=== PATIENT | female | born 1955 | race Hispanic/Latino ===

== ENCOUNTER → 2019-11-25 | Outpatient (CLI) | payer OTHER ==
[~2019-11-25] MED LIST: AEC81 PO; ENAL10TA18 PO; HYDR-3422 PO; IBUP-2784 PO; RISP2TAB22 PO; TRAZ300T2 PO
== END | disposition home or self-care (01) ==
LOC: RAH 15:01
PROVIDERS: ATTEND Internal Medicine Cardiovascular Disease
DX: Z13.6 Encounter for screening for cardiovascular disorders (principal)
CPT/HCPCS: 75571

== ENCOUNTER 2020-03-30 16:52 | Inpatient (IN) | payer OTHER ==
[~2020-03-30] VITALS: Ht 160 cm; Wt 80.8 kg
[~2020-03-30 16:52] MED LIST changes: -RISP2TAB22 PO; +RISP2TAB86 PO
[2020-03-30 17:44] LABS: BASOPHILS % (AUTO) 2.9 % (0.0-5.0); EOSINOPHILS % (AUTO) 1.2 % (0.0-8.0); LYMPHOCYTES % (AUTO) 22.4 % (21.0-51.0); MEAN CORPUSCULAR HEMOGLOBIN 29.3 pg (27.0-33.0); MEAN CORPUSCULAR VOLUME 88.8 fL (79-99); NEUTROPHILS % (AUTO) 64.2 % (40.0-77.0); PLATELET COUNT (AUTO) 292 K/uL (130-400); RED BLOOD CELL COUNT(AUTO) 4.84 MIL/uL (4.00-5.50); WHITE BLOOD COUNT (AUTO) 10.6 K/uL (4.8-10.8)
[2020-03-30 17:45] LABS: APPEARANCE,URINE CLOUDY (CLEAR); BILIRUBIN,URINE LARGE (NEGATIVE); COLOR,URINE ORANGE (YELLOW); GLUCOSE, URINE (UA) 100 mg/dL (NEGATIVE); KETONES,URINE 15 mg/dL (NEGATIVE); LEUKOCYTE ESTERASE ,URINE SMALL (NEGATIVE); NITRATE,URINE POSITIVE (NEGATIVE); OCCULT BLOOD,URINE TRACE-LYSED (NEGATIVE); PH,URINE 6.5 (5.0-8.0); PROTEIN,URINE 30 mg/dL (NEGATIVE)
[2020-03-30] MEDS ORDERED: HYDRALAZINE 25MG TABLET ONE (17:52)
[2020-03-30] MEDS ORDERED: KETOROLAC 30MG VIAL (30MG/ML) ONE (17:52)
[2020-03-30] MEDS ORDERED: 0.9%NACL 1000ML 1,000 ML IV ONE ×2 (17:52→22:16)
[2020-03-30 17:56] LABS: CREATININE 0.8 mg/dL (0.5-1.5); POTASSIUM 3.3 mmol/L (3.5-5.1)
[2020-03-30 18:00] LABS: ALBUMIN 3.6 g/dL (3.5-5.0); BILIRUBIN,TOTAL 5.8 mg/dL (0.2-1.0); CREATINE KINASE, TOTAL 154 U/L (21-232); LIPASE 313 U/L (114-286); TOTAL PROTEIN, SERUM 8.1 g/dL (6.0-8.3)
[2020-03-30 18:13] LABS: BACTERIA,URINE Few /HPF (None Seen); MUCUS,URINE Few LPF (None Seen); SQUAMOUS EPITHELIAL CELL,UR Moderate /HPF (0-2)
[2020-03-30] MEDS ORDERED: CEFTRIAXONE 1G VIAL ONE (19:37)
[2020-03-30] MEDS ORDERED: 0.9%NACL 1000ML 1,000 ML IV SCH (20:15)
[2020-03-30] MEDS ORDERED: CHOLESTYRAMINE PACKET 4 GM PACKET PO SCH (21:00)
[2020-03-31] MEDS ORDERED: HYDROMORPHONE 0.5 MG SYG (0.5MG/0.5ML) ONE ×2 (01:38→08:16)
[2020-03-31 07:21] LABS: BASOPHILS % (AUTO) 1.1 % (0.0-5.0); EOSINOPHILS % (AUTO) 0.8 % (0.0-8.0); HEMATOCRIT 36.4 % (36-48); LYMPHOCYTES % (AUTO) 12.5 % (21.0-51.0); MEAN CORPUSCULAR HEMOGLOBIN 29.1 pg (27.0-33.0); MEAN CORPUSCULAR HGB CONC 32.4 g/dL (32.0-36.0); MEAN CORPUSCULAR VOLUME 89.7 fL (79-99); MONOCYTES % (AUTO) 8.2 % (3.0-13.0); NEUTROPHILS % (AUTO) 77.1 % (40.0-77.0); PLATELET COUNT (AUTO) 209 K/uL (130-400); RED BLOOD CELL COUNT(AUTO) 4.06 MIL/uL (4.00-5.50); RED CELL DISTRIBUTION WIDTH 14.2 % (11.0-15.5); WHITE BLOOD COUNT (AUTO) 8.8 K/uL (4.8-10.8)
[2020-03-31 07:29] LABS: INR 1.05 (0.85-1.15); PROTHROMBIN TIME 11.4 SEC (9.6-11.6)
[2020-03-31 07:31] LABS: BILIRUBIN,TOTAL 4.9 mg/dL (0.2-1.0); CREATININE 0.6 mg/dL (0.5-1.5); PARTIAL THROMBOPLASTIN TIME 22.9 SEC (26.3-35.5); POTASSIUM 3.6 mmol/L (3.5-5.1); TOTAL PROTEIN, SERUM 6.7 g/dL (6.0-8.3)
[2020-03-31] MEDS ORDERED: FAMOTIDINE 20MG TAB ONE (08:16)
[2020-03-31] MEDS ORDERED: FAMOTIDINE 20MG TAB PO SCH (09:00)
[2020-03-31] MEDS ORDERED: GADODIAMIDE 10 MMOL/20 ML VIAL IV ONE (12:49)
[2020-03-31] MEDS ORDERED: 0.9%NACL 1000ML 1,000 ML IV ONE (17:29)
[2020-04-01] MEDS ORDERED: HYDROMORPHONE 1 MG INJ ONE (01:41)
[2020-04-01] MEDS ORDERED: HYDROMORPHONE 0.5 MG SYG (0.5MG/0.5ML) ONE ×2 (08:20→19:38)
[2020-04-01] MEDS ORDERED: FAMOTIDINE 20MG VIAL IV ONE (08:21)
[2020-04-01] MEDS ORDERED: ONDANSETRON 4MG INJ IVP PRN (10:45)
[2020-04-01] MEDS ORDERED: MIDAZOLAM HCL 1 MG/ML 2ML VIAL ONE (11:31)
[2020-04-01] MEDS ORDERED: FENTANYL CITRATE PF 50 MCG/1 ML 2ML VIAL ONE (11:31)
[2020-04-01] MEDS ORDERED: ONDANSETRON 4MG INJ ONE ×2 (12:18→19:40)
[2020-04-01] MEDS ORDERED: VENL-191 PO (20:32)
[2020-04-01 21:48] VITALS: BP 135/70
[2020-04-01] MEDS: HYDROMORPHONE 0.5 MG SYG (0.5MG/0.5ML) IVP PRN (23:08)
[2020-04-02 00:20] VITALS: BP 114/50
[2020-04-02 04:32] VITALS: BP 115/76
[2020-04-02 05:15] LABS: BASOPHILS % (AUTO) 0.5 % (0.0-5.0); EOSINOPHILS % (AUTO) 1.1 % (0.0-8.0); HEMATOCRIT 37.2 % (36-48); LYMPHOCYTES % (AUTO) 23.9 % (21.0-51.0); MEAN CORPUSCULAR HEMOGLOBIN 28.6 pg (27.0-33.0); MEAN CORPUSCULAR HGB CONC 31.7 g/dL (32.0-36.0); MEAN CORPUSCULAR VOLUME 90.3 fL (79-99); NEUTROPHILS % (AUTO) 65.4 % (40.0-77.0); PLATELET COUNT (AUTO) 214 K/uL (130-400); RED BLOOD CELL COUNT(AUTO) 4.12 MIL/uL (4.00-5.50); RED CELL DISTRIBUTION WIDTH 14.6 % (11.0-15.5); WHITE BLOOD COUNT (AUTO) 7.5 K/uL (4.8-10.8)
[2020-04-02 05:27] LABS: ALBUMIN 2.8 g/dL (3.5-5.0); BILIRUBIN,TOTAL 6.1 mg/dL (0.2-1.0); CREATININE 0.7 mg/dL (0.5-1.5); POTASSIUM 3.3 mmol/L (3.5-5.1); TOTAL PROTEIN, SERUM 6.7 g/dL (6.0-8.3)
[2020-04-02] MEDS: HYDROMORPHONE 0.5 MG SYG (0.5MG/0.5ML) IVP PRN (07:32)
[2020-04-02 08:40] VITALS: BP 138/80
[2020-04-02 13:43] VITALS: BP 141/94
== END 2020-04-02 14:15 | disposition home or self-care (01) | DRG 444 ==
LOC: EDH 16:52 → OBSVTOIN 19:40 → EDHIP 19:40 → 3BH 04-01 21:26
PROVIDERS: ADMIT Internal Medicine; ATTEND Internal Medicine
PROC: 0FB23ZX Excision of Left Lobe Liver, Percutaneous Approach, Diagnostic (ICD-10-PCS; principal; 2020-04-01)
DX: K83.1 Obstruction of bile duct (principal); G93.41 Metabolic encephalopathy; R16.0 Hepatomegaly, not elsewhere classified; I10 Essential (primary) hypertension; E78.5 Hyperlipidemia, unspecified; F32.9 Major depressive disorder, single episode, unspecified; M19.90 Unspecified osteoarthritis, unspecified site; R53.83 Other fatigue; R74.8 Abnormal levels of other serum enzymes; G43.909 Migraine, unspecified, not intractable, without status migrainosus; E11.9 Type 2 diabetes mellitus without complications; Z99.2 Dependence on renal dialysis; Z90.49 Acquired absence of other specified parts of digestive tract
CPT/HCPCS: 36415; 47000; 74176; 74183; 76705; 76942; 80053; 81001; 82105; 82140; 82378; 82550; 82948; 83690; 84484; 85025; 85610; 85730; 86316; 87088; 88307; 88341; 88342; 93005; 99152; 99153; A9579; G0378; J0696; J1170; J1885; J2250; J2405; J3010; J3490; J7030